=== PATIENT | male | born 1960 | race Caucasian/White ===

== ENCOUNTER 2023-07-17 13:48 | Inpatient (IN) ==
[2023-07-17] MEDS: SODIUM CHLORIDE 0.9% 1,000 ML IV ONE (14:37)
[2023-07-17] MEDS: LORazepam 1 MG/1 ML SYR ED Inj Use IV STA (14:38)
[2023-07-17 15:01] LABS: BUN Creatinine Ratio 10.1 (10-20); Calcium 8.4 mg/dl (8.6-10.3); Creatinine Clr Calc Pharmacy 23.9 ml/min; Est GFR (African American) 21.2 ml/min; Est GFR (Non-African American) 18.3 ml/min; Magnesium 1.1 mg/dl (1.7-2.4); Potassium 2.8 mmol/L (3.5-5.1)
[2023-07-17] MEDS: MAGNESIUM SULFATE / D5W 1 GM/100 ML BAG IV SCH (15:38)
--- NOTE | 2023-07-17 15:39 | CT Scan Report ---
CT OF THE HEAD WITHOUT CONTRAST CLINICAL HISTORY: Seizure. COMPARISON STUDY: No previous studies for comparison. CT DOSE: 547.75 mGy.cm TECHNIQUE: Helical axial images of the head were obtained without IV contrast. Automated exposure con trol was utilized for the study. A dose lowering technique was utilized adhering to the principles o f ALARA. FINDINGS: No acute intracranial hemorrhage, midline shift or mass effect is present. The ventricular system is unremarkable. The basal cisterns are patent. No extra-axial collections are present. There are no findings to suggest acute dural sinus thrombosis or acute territorial infarct. There is no dieter varial fracture. 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 IMPRESSION: No acute intracranial findings. ACT 112: Negative or not required by law. Electronically signed by: Juni Barron M.D. 07/17/2023 3:38 PM
[2023-07-17] MEDS: levETIRAcetam 500 MG/5 ML VIAL IV STA (16:22)
--- NOTE | 2023-07-17 16:27 | History & Physical Report ---
Date of Service July 17, 2023 Assessment & Plan (1) Seizure: Plan: This is a 63 y/o male with history of seizure d/o (on Keppra, last seizure 6 yrs ago), COPD, HTN, dyslipidemia, GERD, alcohol use disorder, and other history as outlined below who presented to the ED today with seizures. Pt notes two days of vomiting and diarrhea with inability to maintain oral intake or keep medications down, including his Keppra. He also drinks EtOH daily and has not been able to keep this down, has a history of withdrawal symptoms previously. Etiology of seizure likely combination of missed medications and alcohol withdrawal. Multiple electrolyt abnormalities noted on labs. - Admit to PCU - Seizure precautions - Consult neurology - ED spoke with Dr. Lacy - Continue Keppra 500 mg IV BID until pt consistently tolerating po then will transition back to oral meds - Gabapentin alcohol withdrawal protocol, prn lorazepam (2) Hypomagnesemia: Plan: Suspect due to vomiting and diarrhea x 2 days Repletion ordered - will recheck tonight at 9 pm and tomorrow AM (3) Hypokalemia: Plan: Suspect due to vomiting and diarrhea x 2 days Repletion ordered - will recheck tonight at 9 pm and tomorrow AM NsS w/ 20 mEq KCL at 125 ml/hr x 1 liter then reassess (4) FELIX (acute kidney injury): Plan: Likely related to dehydration in view of vomiting and profuse diarrhea with inability to maintain oral intake x 2 days - still making urine though decreased from baseline IVF hydration ordered CT abd/pel pending Check urine electrolytes, repeat BMP in the AM - if not improving, consider nephrology consult (5) Gastroenteritis: Plan: Suspect infectious, potentially bacterial - start empiric ceftriaxone and metronidazole Check stool PCR CT Abd/Pel to rule out colitis or other pathology Clear liquid diet for now (6) Leukocytosis: Plan: Concern for infectious gastroenteritis, may be partially reactive due to multiple seizures and vomiting Empiric antibiotics Repeat CBC in the AM (7) Essential hypertension: Plan: Chronic, stable Continue beta matias but hold losartan due to dehydration and FELIX Monitor BP closely (8) COPD (chronic obstructive pulmonary disease): Plan: Chronic, stable Home regimen ordered (9) Dyslipidemia: Plan: Chronic, stable Holding statin until able to tolerate po (10) GERD (gastroesophageal reflux disease): Plan: Chronic Change PPI to IV until consistently tolerating po No evidence of active GI blood loss at present (11) Hyperglycemia: Plan: Prior history of elevated sugar, on Metformin but more recent A1c levels have been around 5 not currently on any medication Check A1c Accuchecks ACHS - consider adding insulin sliding scale if persistently elevated Plan Pt seen and reviewed with collaborating physician, Dr. Mcgill. Plan of care discussed and as outlined above. Code Status: Full code DVT Prophylaxis: Lovenox Dispo: PCEmi Diallo PA-C History of Present Illness Chief Complaint: Seizure Primary Care Provider: JACE PCP This is a 63 y/o male with history of seizure d/o (on Keppra, last seizure 6 yrs ago), COPD, HTN, dyslipidemia, GERD, alcohol use disorder, and other history as outlined below who presented to the ED today with seizures. Pt reports being diagnosed with seizures six years ago when he had a tonic clonic seizure and was started on Keppra. He was unsure of the cause, but notes that he has done well on Keppra since that time without seizure. Today, he developed three "mini" seizures which he and his describe as brief episodes of rapid eye movements, yelling out, paranoia, and mild tremors. These all lasted less than two minutes and occurred in relatively rapid succession. About an hour later, he had a full tonic clonic seizure with associated fecal incontinence. This lasted less than five minutes but was followed by a brief post-ictal period (?<10 minutes). He did bite his tongue during this episode. Pt reports that he has been vomiting for the last two days and has been unable to keep doing any of his medications, including his Keppra. He has had associated subjective fevers, chills, and profuse diarrhea. Denies hematemesis or hematochezia. He denies sick contacts. He does note eating at [employer] just before these symptoms started and that his Whopper didn't taste right. He also reports drinking alcohol daily although is somewhat reticent to quantify the exact amount - does note that he previously drank "heavily" and has since cut back. He tried drinking a beer this morning to see if this would help his symptoms but did not keep it down. He reports a history of alcohol withdrawal symptoms previously, specifically anxiety and tremors. He denies being diabetic at present although reports that he was on Metformin for blood sugar issues when he was drinking heavily. More recent A1c levels have been around 5 so he has not been taking anything for his blood sugar. He denies prior history of kidney disease. Notes that his urine output and frequency have been reduced over the last 24-48 hours but he is still urinating. Denies dark urine or hematuria. Allergies Allergy/AdvReac Type Severity Reaction Status Date / Time pollen extracts Allergy Intermediate ITCHY Verified 07/17/23 16:11 EYES, SNEEZING, CONGESTION Home Medications Medication Instructions Recorded Confirmed Type albuterol sulfate 90 mcg/actuation 1 puff inhalation DIRECTED PRN 07/17/23 07/17/23 History aerosol inhaler (Ventolin HFA) Shortness Of Breath Or Wheezing aspirin 81 mg tablet,delayed 81 mg PO DAILY 07/17/23 07/17/23 History release atorvastatin 40 mg tablet 40 mg PO DAILY 07/17/23 07/17/23 History calcium carbonate 600 mg-vitamin 1 tab PO DAILY 07/17/23 07/17/23 History D3 5 mcg (200 unit) tablet (Calcium 600 + D(3)) celecoxib 200 mg capsule 200 mg PO DAILY PRN Pain 07/17/23 07/17/23 History fluticasone 100 mcg-salmeterol 50 1 inh inhalation BID 07/17/23 07/17/23 History mcg/dose blistr powdr for inhalation levetiracetam 500 mg tablet 500 mg PO BID 07/17/23 07/17/23 History losartan 100 mg tablet 100 mg PO DAILY 07/17/23 07/17/23 History magnesium oxide 500 mg PO DAILY 07/17/23 07/17/23 History metoprolol tartrate 50 mg tablet 50 mg PO DAILY 07/17/23 07/17/23 History multivitamin 1 tab PO DAILY 07/17/23 07/17/23 History omeprazole 40 mg capsule,delayed 40 mg PO DAILY 07/17/23 07/17/23 History release venlafaxine 37.5 mg 37.5 mg PO DAILY 07/17/23 07/17/23 History capsule,extended release 24 hr Past Med/Surg History Problem List (Updated 07/17/23 @ 18:26 by Maria Isabel Diallo PA-C) FELIX (acute kidney injury) Hyperglycemia Gastroenteritis Leukocytosis Dyslipidemia COPD (chronic obstructive pulmonary disease) Hypokalemia (Acute) Hypomagnesemia (Acute) GERD (gastroesophageal reflux disease) Seizure (Acute) Medical History (Updated 07/17/23 @ 18:26 by Maria Isabel Diallo PA-C) Dyslipidemia COPD (chronic obstructive pulmonary disease) Essential hypertension GERD (gastroesophageal reflux disease) Seizure Surgical History (Updated 07/17/23 @ 17:20 by Maria Isabel Diallo PA-C) 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 Family History (Updated 07/17/23 @ 17:21 by Maria Isabel Diallo PA-C) Other Family history non-contributory Social History (Updated 07/17/23 @ 17:20 by Maria Isabel Diallo PA-C) Tobacco Type: Smokeless Tobacco (Dip or Chew) Hx Alcohol Use: Yes Alcohol type: beer Alcohol Intake Frequency: 4 or More x per/Week Alcohol Intake Frequency Comment: daily Hx Substance Use: No Preferred Language: Ukrainian Current Living Situation: Spouse current occupational status: employed Feels Safe at Home: Yes Review of Systems Review of Systems: All systems reviewed & are unremarkable except as noted in HPI & below Constitutional: + fever, + chills, + fatigue, + weakness and + anorexia Eyes: no diplopia Ear, Nose, Mouth, Throat: + problem reported (pain in mouth second kyle to tongue bite wound); no nasal congestion and no sore throat Respiratory: no cough and no dyspnea Cardiovascular: + lightheadedness; no chest pain and no edema Gastrointestinal: as per Subjective / HPI Genitourinary: + as per Subjective / HPI Musculoskeletal: + back pain Integumentary: no rash and no yellowing of the skin Neurologic: + unsteadiness, + generalized weakness, + seizure-like activity and + dizziness Physical Exam Physical Exam: General: awake, alert, NAD Eyes: PERRLA, EOMI, no scleral icterus Mouth: +small shallow wound on right lateral aspect of tongue, no active bleeding; tongue midline; uvula rises symmetrically with phonation; dry oral mucosa Neck: trachea midline Heart: tachycardic, irregular, no murmur Lungs: CTA bilaterally without W/R/R Abdomen: soft but mildly distended with diffuse tenderness to palpation, no guarding or rigidity, +hyperactive BS Extremities: no pedal edema, strength equal bilaterally but decreased symmetrically in LE (subjectively felt weak) Skin: warm, dry, no jaundice or rash Neurologic: Ox3, no dysarthria, no confusion, moving all extremities but generalized weakness as noted. No tremor at present Results & Data Results & Data Vital Signs (Past 12 Hours) Vital Signs Temp Pulse Pulse Resp BP BP Pulse Ox 07/17/23 16:17 128 H 21 132/92 94 07/17/23 15:03 139 H 22 127/82 94 07/17/23 14:34 147 H 07/17/23 14:07 07/17/23 13:51 37.4 C 146 H 18 152/81 H 95 O2 Del Method 07/17/23 16:17 Room Air 07/17/23 15:03 Room Air 07/17/23 14:34 07/17/23 14:07 Room Air 07/17/23 13:51 Room Air Diagnostic Findings Head CT 07/17/23 14:20 CT OF THE HEAD WITHOUT CONTRAST CLINICAL HISTORY: Seizure. COMPARISON STUDY: No previous studies for comparison. CT DOSE: 547.75 mGy.cm TECHNIQUE: Helical axial images of the head were obtained without IV contrast. Automated exposure control was utilized for the study. A dose lowering technique was utilized adhering to the principles of ALARA. FINDINGS: No acute intracranial hemorrhage, midline shift or mass effect is present. The ventricular system is unremarkable. The basal cisterns are patent. No extra-axial collections are present. There are no findings to suggest acute dural sinus thrombosis or acute territorial infarct. There is no calvarial fracture. 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 IMPRESSION: No acute intracranial findings. ACT 112: Negative or not required by law. Electronically signed by: Juni Barron M.D. 07/17/2023 3:38 PM Medications Administered Magnesium Sulfate/Dextrose (Magnesium Sulfate / D5w) 1 gm in 100 mls @ 100 mls/hr IV Q1H ADALGISA Stop: 07/17/23 17:24 Last Admin: 07/17/23 15:38 Dose: 100 mls/hr Documented By: LOTUS Discontinued Medications Sodium Chloride (Nss) 1,000 mls @ 999 mls/hr IV .Q1H1M ONE Stop: 07/17/23 15:20 Last Infusion: 07/17/23 15:38 Dose: Infused Documented By: Admin: 07/17/23 14:37 Dose: 999 mls/hr Documented By: WILLAM Levetiracetam (Levetiracetam 500 Mg/5 Ml Vial) 500 mg IV NOW STA Stop: 07/17/23 15:52 Last Admin: 07/17/23 16:22 Dose: 500 mg Documented By: WILLAM Lorazepam (Lorazepam 1 Mg/1 Ml Syr Ed Inj Use) 1 mg IV ONE STA Stop: 07/17/23 14:27 Last Admin: 07/17/23 14:38 Dose: 1 mg Documented By: WILLAM Code Status & VTE Plan VTE Prophylaxis Plan VTE Prophylaxis will be ordered: Yes Supervising Physician Co-Signing Physician Notes I have seen and discussed the case with the collaborating advanced practitioner. I agree with the above H&P. I have reviewed and confirmed the patients medical history, the findings on physical examination, and the patients diagnosis and treatment plan with Yoel KIM and agree with the information documented. In short, Mr. Gonzalez is a 63 year old gentleman with history of COPD, GERD, HTN, alcohol use, and prior seizure history who is admitted due to seizure. Patient reports eating a fast food burger that "didn't taste right." He has experienced gastrointestinal symptoms marked by cramping, diarrhea, and vomiting. He reports being unable to keep any of his medications down, including his keppra, given this gi illness. He declines alcohol misuse, but also will not quantify the amount he drinks, stating "its really not that much." Patient able to tolerate PO potassium, but notes nausea. CT 1. No bowel obstruction or bowel wall thickening. 2. Nonspecific distal esophageal wall thickening may represent esophagitis. 3. Colonic diverticulosis. 4. Hepatic steatosis. GENERAL APPEARANCE: AxOx4, slightly disheveled,no acute distress. HEENT: NC, AT. MMM. EOMI, clear conjunctiva, oropharynx clear, tongue with nonbleeding laceration on right lateral edge from bite . NECK: Supple without lymphadenopathy. No stiffness or restricted ROM. HEART: tachycardic, ?pacs LUNGS: CTAB, moving air well. No crackles or wheezes are heard. ABDOMEN: Soft, mild discomfort to palpation, high frequency bowel sounds BACK: No CVAT, no obvious deformity. EXTREMITIES: Without cyanosis, clubbing or edema. NEUROLOGICAL: Grossly nonfocal. Alert and oriented, moving all 4 extremities. CN not formally tested but appear grossly intact. no tremulousness noted on exam Skin: Warm and dry without any rash. #Leukocytosis multifactorial: severe gi illness, reactive post seizure CTX/flagyl Stool pcr CT ab/p trend #Seizure #Alcohol use -Neuro on consult, s/p IV keppra Continue IV Keppra until PO intake sufficient AWSS, gabapentin Seizure precautions neuro consult #EFLIX likely iso severe dehydration/GI illness IVF CT abp without not of hydro/cortical changes/etc avoid nephrotoxic agents if up trending low threhold Nephrology UA studies pending #Severe gastrointestinal illness #Anion gap metabolic acidosis #Multiple electrolyte abnormalities marked by profuse diarrhea, vomiting -Hypokalemia, hypomagnesemia -CT abd/p with esophagitis IV PPI qd rest of plan as above I spent a total of 35 minutes coordinating, documenting, and providing care for this patient excluding time spent in the performance of separately billed services. All of the aforementioned completed outside of collaborating with the assigned advanced practitioner for a full treatment plan. I have reviewed the advanced practitioner's documentation, and I agree with, and take responsibility for the plan of care (6) Leukocytosis Leukocytosis type: unspecified Qualified Code(s): D72.829 - Elevated white blood cell count, unspecified (8) COPD (chronic obstructive pulmonary disease) COPD type: unspecified COPD Qualified Code(s): J44.9 - Chronic obstructive pulmonary disease, unspecified (10) GERD (gastroesophageal reflux disease) Esophagitis presence: esophagitis presence not specified Qualified Code(s): K21.9 - Gastro-esophageal reflux disease without esophagitis
[2023-07-17] MEDS: POTASSIUM CHLORIDE CRTAB 20 MEQ TABCR PO STA (16:28)
[2023-07-17 16:38] LABS: Mean Corpuscular Hemoglobin 34.8 pg (25.0-34.0); Mean Corpuscular Hgb Conc 37.2 g/dL (32.0-36.0); Mean Corpuscular Volume 93.5 fL (80.0-100.0); Mean Platelet Volume 9.9 fL (9.4-12.4); Platelet Count 360 K/uL (130-400); RDW Coefficient of Variation 12.3 % (11.5-14.5); RDW Standard Deviation 41.5 fL (36.4-46.3)
[2023-07-17 16:46] LABS: INR 1.3 (0.9-1.1); Prothrombin Time 13.7 Seconds (9.0-12.0)
--- NOTE | 2023-07-17 17:01 | Emergency Department Note ---
History of Present Illness General Chief complaint: Seizure Stated complaint: NOT EATING, VOMITNG, SHAKING Time Seen by Provider: 07/17/23 14:20 History of Present Illness Provider complaint: Seizure 63-year-old male presents emergency department for seizure. Patient states he had 3 "mini seizures" where he did not lose conscious but folic he was can have a seizure. states he then had 1 seizure lasting approximately 1 minute. Patient did have an episode of urinary continence. Patient states he usually drinks alcohol 3 times daily but has not drank any alcohol today. Patient is post be on Keppra 500 mg twice daily but did not take his Keppra this morning. No falls or traumas. Patient is originally from [place]. Home Medications Medication Instructions Recorded Confirmed Type albuterol sulfate 90 mcg/actuation 1 puff inhalation DIRECTED PRN 07/17/23 07/17/23 History aerosol inhaler (Ventolin HFA) Shortness Of Breath Or Wheezing aspirin 81 mg tablet,delayed 81 mg PO DAILY 07/17/23 07/17/23 History release atorvastatin 40 mg tablet 40 mg PO DAILY 07/17/23 07/17/23 History calcium carbonate 600 mg-vitamin 1 tab PO DAILY 07/17/23 07/17/23 History D3 5 mcg (200 unit) tablet (Calcium 600 + D(3)) celecoxib 200 mg capsule 200 mg PO DAILY PRN Pain 07/17/23 07/17/23 History fluticasone 100 mcg-salmeterol 50 1 inh inhalation BID 07/17/23 07/17/23 History mcg/dose blistr powdr for inhalation levetiracetam 500 mg tablet 500 mg PO BID 07/17/23 07/17/23 History losartan 100 mg tablet 100 mg PO DAILY 07/17/23 07/17/23 History magnesium oxide 500 mg PO DAILY 07/17/23 07/17/23 History metoprolol tartrate 50 mg tablet 50 mg PO DAILY 07/17/23 07/17/23 History multivitamin 1 tab PO DAILY 07/17/23 07/17/23 History omeprazole 40 mg capsule,delayed 40 mg PO DAILY 07/17/23 07/17/23 History release venlafaxine 37.5 mg 37.5 mg PO DAILY 07/17/23 07/17/23 History capsule,extended release 24 hr Allergies Allergy/AdvReac Type Severity Reaction Status Date / Time pollen extracts Allergy Intermediate ITCHY Verified 07/17/23 16:11 EYES, SNEEZING, CONGESTION Past Med/Surg History Problem List (Updated 07/17/23 @ 17:06 by Evangelist Henriquez MD) Hypokalemia (Acute) Hypomagnesemia (Acute) HLD (hyperlipidemia) GERD (gastroesophageal reflux disease) Seizure (Acute) Medical History No pertinent family history HLD (hyperlipidemia) GERD (gastroesophageal reflux disease) Seizure Surgical History No pertinent past surgical history Social History Tobacco Type: Smokeless Tobacco (Dip or Chew) Preferred Language: [place]ese Feels Safe at Home: Yes Physical Exam Vital Signs Vital Signs - 24 hr 07/17/23 13:51 07/17/23 14:07 07/17/23 14:34 Temperature 37.4 C Temperature Source Temporal Artery Scan Pulse Rate 146 H 147 H Pulse Rate [Right Finger] Respiratory Rate 18 Respiratory Effort / Characteristics Non-Labored Spontaneous Respiratory Depth Normal Respiratory Pattern Regular Blood Pressure 152/81 H Blood Pressure [Right Arm] Blood Pressure Mean 104 Blood Pressure Mean [Right Arm] Blood Pressure Position Sitting Pulse Oximetry 95 Oxygen Delivery Method Room Air Room Air Sepsis Recent Fever Within 48 Hours No Sepsis New/Unexplained Change in Mental Status N/A Sepsis Action Taken by Nursing No Action Required 07/17/23 15:03 07/17/23 16:17 Temperature Temperature Source Pulse Rate Pulse Rate [Right Finger] 139 H 128 H Respiratory Rate 22 21 Respiratory Effort / Characteristics Non-Labored Non-Labored Spontaneous Respiratory Depth Normal Normal Respiratory Pattern Regular Blood Pressure Blood Pressure [Right Arm] 127/82 132/92 Blood Pressure Mean Blood Pressure Mean [Right Arm] 97 105 Blood Pressure Position Pulse Oximetry 94 94 Oxygen Delivery Method Room Air Room Air Sepsis Recent Fever Within 48 Hours Sepsis New/Unexplained Change in Mental Status Sepsis Action Taken by Nursing Physical Exam GENERAL: Patient in what appears to be urine soaked pants. HENT: Exam performed. - Head: Normocephalic and atraumatic. - Right Ear: External ear normal. No mastoid erythema - Left Ear: External ear normal. No mastoid erythema - Mouth/Throat: The oropharynx is clear and moist. No trismus in the jaw. No dental abscesses or uvula swelling. No oropharyngeal exudate or tonsillar abscesses. There is evidence of a right-sided tongue bite/abrasion. EYES: Conjunctivae and EOM are normal. Pupils are equal, round, and reactive to light. Right eye exhibits no discharge. Left eye exhibits no discharge. No scleral icterus. NECK: Normal range of motion. Neck supple. No JVD present. No spinous process tenderness present. No rigidity. No tracheal deviation and normal range of motion present. CV: Tachycardic rate, regular rhythm, normal heart sounds and intact distal pulses. There is no peripheral edema. Palpable radial pulses bue. PULM/CHEST: Effort normal and breath sounds normal. No respiratory distress. No stridor. He has no wheezes. He has no rales. ABD: The abdomen is soft. There is no tenderness. There is no rebound, no guarding, no Perales's sign. NEURO: Patient appears tremulous. He is alert and oriented to person, place, and time. He has normal strength. No cranial nerve deficit or sensory deficit. Coordination and gait normal. GCS eye subscore is 4. GCS verbal subscore is 5. GCS motor subscore is 6. Cerebellar tests wnl. Course Course 1420: The patient was evaluated in room . A complete history and physical exam was performed Cardiac monitoring: An order was placed for continuous cardiac monitoring. The monitor shows a rate of 140 with sinus rhythm interpreted by al 1601: Patient's tachycardia has improved with Ativan and IV hydration. Blood pressure stable. Tremor has improved. CT of the head within normal limits. Labs show a potassium of 2.8. Creatinine 3.38. Magnesium 1.1. Patient states he is not aware of any kidney disease. Magnesium repletion started in the emergency department and then will be followed by potassium repletion. Patient states he did not take his morning Keppra dose. 500 mg of IV Keppra ordered for the patient. Discussed the case with on-call neurology Dr. Lacy and he agrees that we can continue with the patient's 500 mg of Keppra twice daily, no need for any further Keppra loading or increased dosage. Patient will be admitted to the [facility] team. 1704: White blood cell count 31.8. Thought to be reactive secondary to seizures. Prolactin level is elevated again corresponding with most likely seizure. Administered Medications Magnesium Sulfate/Dextrose (Magnesium Sulfate / D5w) 1 gm in 100 mls @ 100 mls/hr IV Q1H ADALGISA Stop: 07/17/23 17:24 Last Admin: 07/17/23 16:54 Dose: 100 mls/hr Documented By: Infusion: 07/17/23 16:38 Dose: Infused Documented By: Admin: 07/17/23 15:38 Dose: 100 mls/hr Documented By: TONYT Discontinued Medications Sodium Chloride (Nss) 1,000 mls @ 999 mls/hr IV .Q1H1M ONE Stop: 07/17/23 15:20 Last Infusion: 07/17/23 15:38 Dose: Infused Documented By: Admin: 07/17/23 14:37 Dose: 999 mls/hr Documented By: WILLAM Levetiracetam (Levetiracetam 500 Mg/5 Ml Vial) 500 mg IV NOW STA Stop: 07/17/23 15:52 Last Admin: 07/17/23 16:22 Dose: 500 mg Documented By: WILLAM Lorazepam (Lorazepam 1 Mg/1 Ml Syr Ed Inj Use) 1 mg IV ONE STA Stop: 07/17/23 14:27 Last Admin: 07/17/23 14:38 Dose: 1 mg Documented By: WILLAM Potassium Chloride (Potassium Chloride Crtab 20 Meq Tabcr) 40 meq PO NOW STA Stop: 07/17/23 16:25 Last Admin: 07/17/23 16:28 Dose: 40 meq Documented By: WILLAM Medical Decision Making Laboratory Data Attestation: I reviewed the patient's lab results. 07/17/23 14:10 07/17/23 14:10 Lab Results 07/17/23 Range/Units 14:10 WBC 31.80 H* (4.8-10.8) K/ul RBC 4.60 L (4.70-6.10) M/uL Hgb 16.0 (14.0-18.0) g/dl Hct 43.0 (42.0-52.0) % MCV 93.5 (80.0-100.0) fL MCH 34.8 H (25.0-34.0) pg MCHC 37.2 H (32.0-36.0) g/dL RDW Std Deviation 41.5 (36.4-46.3) fL RDW Coeff of Tanner 12.3 (11.5-14.5) % Plt Count 360 (130-400) K/uL MPV 9.9 (9.4-12.4) fL PT 13.7 H (9.0-12.0) Seconds INR 1.3 H (0.9-1.1) Sodium 135 L (136-145) mmol/L Potassium 2.8 L (3.5-5.1) mmol/L Chloride 93 L (98-107) mmol/L Carbon Dioxide 13 L (21-32) mmol/L Anion Gap 29 H (3-11) BUN 34 H (6-23) mg/dl Creatinine 3.38 H (0.6-1.4) mg/dl Est Cr Clr Drug Dosing 23.9 ml/min Est GFR ( Amer) 21.2 ml/min Est GFR (Non-Af Amer) 18.3 ml/min BUN/Creatinine Ratio 10.1 (10-20) Glucose 343 H* (70-99(Fasting)) mg/dl Calcium 8.4 L (8.6-10.3) mg/dl Magnesium 1.1 L (1.7-2.4) mg/dl Prolactin 18.99 ng/ml Imaging Data Radiologist's Impression: Head CT 07/17/23 14:20 CT OF THE HEAD WITHOUT CONTRAST CLINICAL HISTORY: Seizure. COMPARISON STUDY: No previous studies for comparison. CT DOSE: 547.75 mGy.cm TECHNIQUE: Helical axial images of the head were obtained without IV contrast. Automated exposure control was utilized for the study. A dose lowering technique was utilized adhering to the principles of ALARA. FINDINGS: No acute intracranial hemorrhage, midline shift or mass effect is present. The ventricular system is unremarkable. The basal cisterns are patent. No extra-axial collections are present. There are no findings to suggest acute dural sinus thrombosis or acute territorial infarct. There is no calvarial fracture. 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 IMPRESSION: No acute intracranial findings. ACT 112: Negative or not required by law. Electronically signed by: Juni Barron M.D. 07/17/2023 3:38 PM ECG Data Attestation: I personally reviewed and interpreted this ECG as follows: Rate (beats per minute): 151 Rhythm: + sinus tachycardia ECG Intervals/blocks: + Normal QRS, + Normal UT and + Normal QT-c ECG ST segments: + Normal ST segments MDM Narrative 1420: The patient was evaluated in room . A complete history and physical exam was performed Cardiac monitoring: An order was placed for continuous cardiac monitoring. The monitor shows a rate of 140 with sinus rhythm interpreted by me 1601: Patient's tachycardia has improved with Ativan and IV hydration. Blood pressure stable. Tremor has improved. CT of the head within normal limits. Labs show a potassium of 2.8. Creatinine 3.38. Magnesium 1.1. Patient states he is not aware of any kidney disease. Magnesium repletion started in the emergency department and then will be followed by potassium repletion. Patient states he did not take his morning Keppra dose. 500 mg of IV Keppra ordered for the patient. Discussed the case with on-call neurology Dr. Lacy and he agrees that we can continue with the patient's 500 mg of Keppra twice daily, no need for any further Keppra loading or increased dosage. Patient will be admitted to the [facility] team. 1704: White blood cell count 31.8. Thought to be reactive secondary to seizures. Prolactin level is elevated again corresponding with most likely seizure. Impression & Plan Seizure, Hypomagnesemia, Hypokalemia Discharge Plan Visit Data Chief Complaint: Seizure Stated Complaint: NOT EATING, VOMITNG, SHAKING ED Provider: Evangelist Henriquez Discharge Problem: Seizure, Hypomagnesemia, Hypokalemia Patient Disposition: Admitted As Inpatient Forms Stand Alone Forms: [facility] Prescriptions Prescriptions: No Action multivitamin Tablet 1 tab PO DAILY celecoxib 200 mg capsule 200 mg PO DAILY PRN (Reason: Pain) atorvastatin 40 mg tablet 40 mg PO DAILY venlafaxine 37.5 mg capsule,extended release 24hr 37.5 mg PO DAILY levetiracetam 500 mg tablet 500 mg PO BID calcium carbonate-vitamin D3 [Calcium 600 + D(3)] 600 mg-5 mcg (200 unit) Tablet 1 tab PO DAILY omeprazole 40 mg capsule,delayed release(DR/EC) 40 mg PO DAILY aspirin 81 mg Tablet,Delayed Release (Dr/Ec) 81 mg PO DAILY metoprolol tartrate 50 mg tablet 50 mg PO DAILY magnesium oxide 500 mg magnesium tablet 500 mg PO DAILY fluticasone propion-salmeterol 100-50 mcg/dose blister with device 1 inh INHALATION BID albuterol sulfate [Ventolin HFA] 90 mcg/actuation Hfa Aerosol Inhaler 1 puff INHALATION DIRECTED PRN (Reason: Shortness Of Breath Or Wheezing) losartan 100 mg tablet 100 mg PO DAILY Referrals Referrals: PCP,NO [Primary Care Provider] -
[2023-07-17] MEDS ORDERED: LIDOCAINE VISCOUS 2% 15 ML UDC MT PRN (17:12)
[2023-07-17 17:13] LABS: Albumin Level 5.1 gm/dl (3.4-5.0); Bilirubin Direct 0.3 mg/dl (0-0.2); Bilirubin,Total 0.8 mg/dl (0.2-1.0)
--- NOTE | 2023-07-17 17:13 | Electrocardiogram Report ---
Test Reason : Blood Pressure : / mmHG Vent. Rate : 151 BPM Atrial Rate : 170 BPM P-R Int : 184 ms QRS Dur : 082 ms QT Int : 296 ms P-R-T Axes : 000 -08 222 degrees QTc Int : 469 ms Sinus tachycardia Minimal voltage criteria for LVH, may be normal variant Nonspecific ST and T wave abnormality Abnormal ECG No previous ECGs available Confirmed by Kashif Velázquez ([id number]) on 07/17/2023 5:13:05 PM Referred By: REFERRED SELF Confirmed By:Carlito Velázquez
[2023-07-17 17:16] LABS: Phosphorus 5.6 mg/dl (2.5-4.9); Total Protein 8.5 gm/dl (6.0-8.3)
[2023-07-17 17:25] LABS: Folate (Folic Acid),Ser orPlas > 22.30 ng/ml (>5.38)
[2023-07-17 17:26] LABS: Vitamin B12 318 pg/ml (180-914)
[2023-07-17] MEDS: cefTRIAXone SODIUM 2,000 MG/50 ML BAG IV SCH (17:36)
[2023-07-17] MEDS: PANTOprazole 40 MG in SYRINGE 0 ML IV SCH (18:09)
[2023-07-17] MEDS: metroNIDAZOLE 500 MG/100 ML BAG IV SCH (18:14)
--- NOTE | 2023-07-17 18:37 | CT Scan Report ---
ABDOMEN AND PELVIS CT WITHOUT CONTRAST CT DOSE: 1390.78 mGy.cm HISTORY: Acute generalized abdominal pain leukocytosis, abdominal pain TECHNIQUE: Multiaxial CT images of the abdomen and pelvis were performed without contrast. A dose lo wering technique was utilized adhering to the principles of ALARA. COMPARISON STUDY: None. FINDINGS: Coronary artery calcifications. Mild cardiomegaly. Mild subsegmental bibasilar atelectasis versus scarring. No free air. Unremarkable unenhanced spleen, pancreas and adrenal glands. Possible g allbladder sludge. Hepatic steatosis with mild hepatomegaly. Mild nonspecific bilateral perinephric stranding. No urolithiasis or hydronephrosis. Prostatomegaly w ith mild bladder wall thickening. There is mild dilation of the mid to distal left ureter. Small fat filled left inguinal hernia. No abdominal aortic aneurysm. No lymphadenopathy. Nonspecific distal eso phageal wall thickening. Tiny hiatal hernia. No bowel obstruction or bowel wall thickening. Colonic d iverticulosis. Normal appendix. Unremarkable soft tissues. Healed chronic left-sided rib fractures. N o acute fracture. IMPRESSION: 1. No bowel obstruction or bowel wall thickening. 2. Nonspecific distal esophageal wall thickening may represent esophagitis. 3. Colonic diverticulosis. 4. Hepatic steatosis. ACT 112: Negative or not required by law. The above report was generated using voice recognition software. It may contain grammatical, syntax o r spelling errors. Electronically signed by: Tushar Flor M.D. 07/17/2023 6:35 PM
[2023-07-17] MEDS: NSS + 20MEQ KCL 20 MEQ/1,000 ML BAG IV SCH (19:05)
[2023-07-17] MEDS ORDERED: Ativan IV Alcohol Withdrawal--Active Protocol IV PRN (19:40)
[2023-07-17] MEDS ORDERED: DICYCLOMINE HCL 10 MG CAP PO PRN (19:40)
[2023-07-17] MEDS ORDERED: LORazepam 2 MG in SYRINGE 1 ML IV PRN (19:40)
[2023-07-17] MEDS ORDERED: ALBUTEROL HFA 8 GM INHALER INH PRN (19:40)
[2023-07-17] MEDS ORDERED: GABAPENTIN 600MG ALCOHOL WITHDRAWAL LOAD PO STA (19:40)
[2023-07-17] MEDS: GABAPENTIN 600 MG TAB PO ONE (20:54)
[2023-07-17] MEDS: FOLIC ACID 1 MG in SYRINGE 9.8 ML IV SCH (20:55)
[2023-07-17] MEDS: THIAMINE HCL 100 MG in SYRINGE 9 ML IV SCH (20:55)
[2023-07-17] MEDS: POTASSIUM CHLORIDE CRTAB 20 MEQ TABCR PO SCH (20:55)
[2023-07-17 22:04] LABS: BUN Creatinine Ratio 11.8 (10-20); Calcium 7.3 mg/dl (8.6-10.3); Creatinine Clr Calc Pharmacy 28.2 ml/min; Est GFR (African American) 25.8 ml/min; Est GFR (Non-African American) 22.3 ml/min; Potassium 2.9 mmol/L (3.5-5.1)
[2023-07-18] MEDS: GABAPENTIN 100 MG CAP PO SCH (00:30)
[2023-07-18] MEDS: levETIRAcetam IV 500 MG in SODIUM CHLOR 0.9% MINI-B 100 ML IV SCH (03:35)
[2023-07-18 04:01] LABS: Appearance Urine Clear (Clear); Bacteria Urine Automated None Seen (None Seen); Bilirubin Urine Negative (Negative); Blood Urine 2+ (Negative); Cast Urine Automated 0-2 /lpf (0-2); Color Urine Yellow; Epithelial Cell Urine Auto 0-2 /hpf (0-2); Glucose Urine UA Negative (Negative); Ketones Urine Negative (Negative); Leukocyte Esterase Urine Negative (Negative); Nitrite Urine Negative (Negative); Protein Urine 2+ (Negative); RBC Urine Automated 0-2 /hpf (0-2); Specific Gravity Urine 1.007 (1.000-1.030); Urobilinogen Urine Negative (Negative); WBC Urine Automated 0-5 /hpf (0-5); pH Urine 5.5 (4.5-7.5)
[2023-07-18 04:18] LABS: Chloride Random Urine < 15 mmol/L; Total Protein Urine Random 57.9 mg/dl (0-11.9); Urine Chloride < 15 mmol/L; Urine Potassium 11.9 mmol/L; Urine Sodium 18 mmol/L
[2023-07-18 04:24] LABS: Creatinine Urine Random 74.1 mg/dl; Protein Creatinine Ratio Urine 0.8 (0-0.2)
[2023-07-18 06:40] LABS: BUN Creatinine Ratio 13.7 (10-20); Calcium 6.9 mg/dl (8.6-10.3); Creatinine Clr Calc Pharmacy 31.5 ml/min; Est GFR (African American) 29.7 ml/min; Est GFR (Non-African American) 25.6 ml/min; Magnesium 1.7 mg/dl (1.7-2.4); Potassium 3.5 mmol/L (3.5-5.1)
[2023-07-18 06:46] LABS: Basophils # (auto) 0.03 K/uL (0.00-0.20); Basophils % (auto) 0.3 %; Eosinophils # (auto) 0.05 K/uL (0.00-0.50); Eosinophils % (auto) 0.5 %; Hematocrit (blood only) 32.9 % (42.0-52.0); Hemoglobin 11.6 g/dl (14.0-18.0); Immature Granulocytes # (auto) 0.06 K/uL (0.01-0.20); Immature Granulocytes % (auto) 0.6 %; Lymphocytes % (auto) 8.6 %; Mean Corpuscular Hemoglobin 33.3 pg (25.0-34.0); Mean Corpuscular Hgb Conc 35.3 g/dL (32.0-36.0); Mean Corpuscular Volume 94.5 fL (80.0-100.0); Mean Platelet Volume 9.6 fL (9.4-12.4); Monocytes # (auto) 0.69 K/uL (0.11-0.59); Monocytes % (auto) 7.4 %; Neutrophils # (auto) 7.65 K/uL (1.40-6.50); Neutrophils % (auto) 82.6 %; Platelet Count 156 K/uL (130-400); Platelet Estimate Normal (Normal); Polychromasia 1+; RDW Coefficient of Variation 12.2 % (11.5-14.5); RDW Standard Deviation 41.8 fL (36.4-46.3); Red Blood Count 3.48 M/uL (4.70-6.10); White Blood Count 9.28 K/ul (4.8-10.8)
[2023-07-18 06:51] LABS: Estimated Average Glucose 128 mg/dl; Hemoglobin A1C 6.1 % (4.5-5.6)
--- NOTE | 2023-07-18 08:33 | Neurology Consultation ---
Date of Consultation July 18, 2023 Assessment & Plan (1) Seizure: History of Present Illness Attending Physician: Manuel Guerrier MD History of Present Illness pt this morning doing well. pt states he had GI problem for 3 months with diarrhea and feeling sick. he had loose stool daily for almost 3 months. pt yesterday feeling not well and had seizure. pt is on keppra and he couldn't take his med. this morning his GI symptoms improving. not confused. no more seizures. admission HPI: This is a 63 y/o male with history of seizure d/o (on Keppra, last seizure 6 yrs ago), COPD, HTN, dyslipidemia, GERD, alcohol use disorder, and other history as outlined below who presented to the ED today with seizures. Pt reports being diagnosed with seizures six years ago when he had a tonic clonic seizure and was started on Keppra. He was unsure of the cause, but notes that he has done well on Keppra since that time without seizure. Today, he developed three "mini" seizures which he and his describe as brief episodes of rapid eye movements, yelling out, paranoia, and mild tremors. These all lasted less than two minutes and occurred in relatively rapid succession. About an hour later, he had a full tonic clonic seizure with associated fecal incontinence. This lasted less than five minutes but was followed by a brief post-ictal period (?<10 minutes). He did bite his tongue during this episode. Pt reports that he has been vomiting for the last two days and has been unable to keep doing any of his medications, including his Keppra. He has had associated subjective fevers, chills, and profuse diarrhea. Denies hematemesis or hematochezia. He denies sick contacts. He does note eating at [employer] just before these symptoms started and that his Whopper didn't taste right. He also reports drinking alcohol daily although is somewhat reticent to quantify the exact amount - does note that he previously drank "heavily" and has since cut back. He tried drinking a beer this morning to see if this would help his symptoms but did not keep it down. He reports a history of alcohol withdrawal symptoms previously, specifically anxiety and tremors. He denies being diabetic at present although reports that he was on Metformin for blood sugar issues when he was drinking heavily. More recent A1c levels have been around 5 so he has not been taking anything for his blood sugar. He denies prior history of kidney disease. Notes that his urine output and frequency have been reduced over the last 24-48 hours but he is still urinating. Denies dark urine or hematuria. Allergies Allergy/AdvReac Type Severity Reaction Status Date / Time pollen extracts Allergy Intermediate ITCHY Verified 07/17/23 16:11 EYES, SNEEZING, CONGESTION Home Medications Medication Instructions Recorded Confirmed Type albuterol sulfate 90 mcg/actuation 1 puff inhalation DIRECTED PRN 07/17/23 07/17/23 History aerosol inhaler (Ventolin HFA) Shortness Of Breath Or Wheezing aspirin 81 mg tablet,delayed 81 mg PO DAILY 07/17/23 07/17/23 History release atorvastatin 40 mg tablet 40 mg PO DAILY 07/17/23 07/17/23 History calcium carbonate 600 mg-vitamin 1 tab PO DAILY 07/17/23 07/17/23 History D3 5 mcg (200 unit) tablet (Calcium 600 + D(3)) celecoxib 200 mg capsule 200 mg PO DAILY PRN Pain 07/17/23 07/17/23 History fluticasone 100 mcg-salmeterol 50 1 inh inhalation BID 07/17/23 07/17/23 History mcg/dose blistr powdr for inhalation levetiracetam 500 mg tablet 500 mg PO BID 07/17/23 07/17/23 History losartan 100 mg tablet 100 mg PO DAILY 07/17/23 07/17/23 History magnesium oxide 500 mg PO DAILY 07/17/23 07/17/23 History metoprolol tartrate 50 mg tablet 50 mg PO DAILY 07/17/23 07/17/23 History multivitamin 1 tab PO DAILY 07/17/23 07/17/23 History omeprazole 40 mg capsule,delayed 40 mg PO DAILY 07/17/23 07/17/23 History release venlafaxine 37.5 mg 37.5 mg PO DAILY 07/17/23 07/17/23 History capsule,extended release 24 hr Patient History Medical History (Updated 07/18/23 @ 08:31 by Tanner Lacy MD) Essential hypertension Surgical History (Updated 07/17/23 @ 17:20 by Maria Isabel Diallo PA-C) 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 Family History (Updated 07/17/23 @ 17:21 by Maria Isabel Diallo PA-C) Other Family history non-contributory Social History (Updated 07/17/23 @ 17:20 by Maria Isabel Diallo PA-C) Smoking Status: Never smoker Tobacco Type: Smokeless Tobacco (Dip or Chew) Second Hand Exposure: No; Do You Dip or Chew Tobacco: Yes; Tobacco Cessation Education Requested by Patient: No Hx Alcohol Use: Yes Alcohol type: beer Alcohol Intake Frequency: 4 or More x per/Week Alcohol Intake Frequency Comment: daily Hx Substance Use: No Preferred Language: Israeli Communication Ability: Effective [employer]argo Specialist Required: No Beliefs That Will Affect Care: None Current Living Situation: Spouse current occupational status: employed Other Information That Helps Us Care for You: No Feels Safe at Home: Yes Safety Concerns: Feels Safe At This Time Assistive Devices: Cane and CPAP Exam (Neuro) Physical Exam: HEENT: normocephalic Neuro: Mental: AOx4, fluent speech, normal comprehension, no apraxia, no L/R confusion, no neglect CN: PERRL, Full EOM, symmetric face, midline T/U/P, 5/5 SCM/traps. Motor: No abnormal movements, normal tone and bulk, 5/5 t/o bilaterally Coord: intact FNT b/l DTR: 2+ sym b/l Impression: 63 yo male with hx of seizure and chronic alcoholic with breakthrough events in setting of dehydration, missed med, and likely GI infection. doing well currently. no sign of withdrawal at this point. Recommendations: can change his keppra to PO once pt is able to hold down his food. continue 500mg bid no need for EEG correct electrolytes. not much else to add from neurology consider checking for thiamine level call again if new question. Chart reviewed I have spent more than 50% educating patient about potential diagnosis and neurological evaluation and coordinating care with patient's treatment team. Total time spent (including chart review and coordination of care): 60 min (this includes chart review). Results & Data Vital Signs (Past 12 Hours) Vital Signs Temp Pulse Resp BP BP Pulse Ox O2 Del Method 07/18/23 07:23 36.8 C 83 19 131/84 95 Room Air 07/18/23 02:54 36.5 C 95 H 19 121/82 98 Room Air 07/17/23 22:51 36.7 C 97 H 20 126/76 95 Room Air PG Care Time/CCT Total # of Minutes Spent Total Time Spent with Patient: Total time spent is greater than 50% in coordination of care (as documented) at patient's floor/unit and/or counseling patient: Coding Level of Care Code 29164 IN/OBS CONSULT LVL 4,60M Diagnoses Seizure R56.9
[2023-07-18] MEDS: ENOXAPARIN INJ 30 MG/0.3 ML SYR SQ SCH (08:54)
[2023-07-18] MEDS: VENLAFAXINE HCL XR 37.5 MG CAPXR PO SCH (08:54)
[2023-07-18] MEDS: METOPROLOL TARTRATE 50 MG TAB PO SCH (08:54)
[2023-07-18] MEDS: SODIUM CHLORIDE 0.9% 1,000 ML IV SCH (08:55)
[2023-07-18] MEDS: FLUTICASONE/VILANTEROL 100/25MCG 14 PUFFS/INHALER INH SCH (10:57)
[2023-07-18 14:03] LABS: Adenovirus F 40/41 PCR Not Detected (NotDetected); Astrovirus PCR Not Detected (NotDetected); Campylobacter PCR Not Detected (NotDetected); Cryptosporidium PCR Not Detected (NotDetected); Cyclospora cayetanensis PCR Not Detected (NotDetected); Entamoeba histolytica PCR Not Detected (NotDetected); Enteroaggregative E.coli(EAEC) Not Detected (NotDetected); Enteropathogenic E.coli (EPEC) Not Detected (NotDetected); Enterotoxigenic E.coli (ETEC) Not Detected (NotDetected); Giardia lamblia PCR Not Detected (NotDetected); Norovirus GI/GII PCR Not Detected (NotDetected); Plesiomonas shigelloides PCR Not Detected (NotDetected); Rotavirus A PCR Not Detected (NotDetected); Salmonella PCR Not Detected (NotDetected); Sapovirus PCR Not Detected (NotDetected); Shiga-like Toxin E.coli (STEC) Not Detected (NotDetected); Shigella/Enteroinvasive E.coli Not Detected (NotDetected); Vibrio cholerae PCR Not Detected (NotDetected); Vibrio species PCR Not Detected (NotDetected); Yersinia enterocolitica PCR Not Detected (NotDetected)
--- NOTE | 2023-07-18 14:15 | Hospitalist Progress Note ---
Date of Service July 18, 2023 Assessment & Plan (1) Seizure: Plan: This is a 63 y/o male with history of seizure d/o (on Keppra, last seizure 6 yrs ago), COPD, HTN, dyslipidemia, GERD, alcohol use disorder, and other history as outlined below who presented to the ED today with seizures. Pt notes two days of vomiting and diarrhea with inability to maintain oral intake or keep medications down, including his Keppra. He also drinks EtOH daily and has not been able to keep this down, has a history of withdrawal symptoms previously. Etiology of seizure likely combination of missed medications and alcohol withdrawal. Multiple electrolyt abnormalities noted on labs. Evaluated by neurology; recommended to continue Keppra IV until oral can be established. Seizure precaution Will replete electrolyte as necessary (2) Gastroenteritis: Plan: Gastroenteritis with nausea and vomiting for several days Stool PCR negative CT abdomen pelvis did not show any significant findings On empiric ceftriaxone and Flagyl. Will continue antibiotics till blood cultures are negative. Full liquid diet; advance as tolerated (3) FELIX (acute kidney injury): Plan: Likely related to dehydration in view of vomiting and profuse diarrhea with inability to maintain oral intake x 2 days His creatinine back in March 2023 was 0.99 Creatinine getting better with IV hydration from 3.8-2.5. Continue IV fluids with normal saline for 2 more liters BMP daily (4) Hypomagnesemia: Plan: Suspect due to vomiting and diarrhea x 2 days Repleted (5) Hypokalemia: Plan: Suspect due to vomiting and diarrhea x 2 days Repleted (6) Leukocytosis: Plan: Likely stress related; resolved repleted Empiric antibiotics (7) Essential hypertension: Plan: Chronic, stable Continue beta matias but hold losartan due to dehydration and FELIX Monitor BP closely (8) COPD (chronic obstructive pulmonary disease): Plan: Chronic, stable Home regimen ordered (9) Dyslipidemia: Plan: Chronic, stable Holding statin until able to tolerate po (10) GERD (gastroesophageal reflux disease): Plan: Chronic Continue PPI (11) Hyperglycemia: Plan: Prior history of elevated sugar, on Metformin but more recent A1c levels have been around 5 not currently on any medication A1c of 6.1% Monitor Plan Code Status: Full code DVT Prophylaxis: Lovenox Dispo: PCU Time spent evaluating patient, direct bedside care, chart review, placing orders, interpretation of diagnostic studies, discussion with consultants, patient, and family members, as well as other required patient management activities is 50 minutes Please note the above document was generated using voice recognition software. It may contain grammatical, syntax or spelling errors. Any formal questions or concerns about the content, text or information contained within the body of this dictation should be directly addressed to the provider for clarification Admission and Anticipated Discharge Date Admission Date: July 17, 2023 Subjective Patient seen and examined at bedside. He reports the nausea and vomiting has improved compared to yesterday Denies any abdominal pain or discomfort. No seizures overnight Review of Systems Review of Systems: All systems reviewed & are unremarkable except as noted in Subjective Physical Exam Physical Exam: General: awake, alert, NAD Eyes: PERRLA, EOMI, no scleral icterus Mouth: +small shallow wound on right lateral aspect of tongue, no active bleeding; Neck: trachea midline Heart: tachycardic,regular, no murmur Lungs: CTA bilaterally without W/R/R Abdomen: soft but mildly distended with diffuse tenderness to palpation, no guarding or rigidity, +hyperactive BS Extremities: no pedal edema, strength equal bilaterally but decreased symmetrically in LE (subjectively felt weak) Skin: warm, dry, no jaundice or rash Neurologic: Ox3, no dysarthria, no confusion, moving all extremities but generalized weakness as noted. No tremor at present Results & Data Results & Data Vital Signs (Past 12 Hours) Vital Signs Temp Pulse Pulse Resp BP BP Pulse Ox 07/18/23 11:20 36.7 C 82 20 125/88 95 07/18/23 08:00 90 07/18/23 07:23 36.8 C 83 19 131/84 95 07/18/23 02:54 36.5 C 95 H 19 121/82 98 O2 Del Method 07/18/23 11:20 Room Air 07/18/23 08:00 07/18/23 07:23 Room Air 07/18/23 02:54 Room Air (6) Leukocytosis Leukocytosis type: unspecified Qualified Code(s): D72.829 - Elevated white blood cell count, unspecified (8) COPD (chronic obstructive pulmonary disease) COPD type: unspecified COPD Qualified Code(s): J44.9 - Chronic obstructive pulmonary disease, unspecified (10) GERD (gastroesophageal reflux disease) Esophagitis presence: esophagitis presence not specified Qualified Code(s): K21.9 - Gastro-esophageal reflux disease without esophagitis
[2023-07-18] MEDS: GABAPENTIN 600 MG TAB PO SCH (15:30)
[2023-07-18] MEDS: LORazepam 1 MG in SYRINGE 0.5 ML IV PRN (18:44)
[2023-07-18] MEDS: PANTOprazole 40 MG in SYRINGE 0 ML IV SCH (22:28)
[2023-07-19 00:45] LABS: Hematocrit (blood only) 29.2 % (42.0-52.0); Hemoglobin 10.4 g/dl (14.0-18.0)
[2023-07-19 07:09] LABS: Basophils # (auto) 0.04 K/uL (0.00-0.20); Basophils % (auto) 0.4 %; Eosinophils # (auto) 0.17 K/uL (0.00-0.50); Eosinophils % (auto) 1.9 %; Hematocrit (blood only) 29.2 % (42.0-52.0); Hemoglobin 10.5 g/dl (14.0-18.0); Immature Granulocytes # (auto) 0.08 K/uL (0.01-0.20); Immature Granulocytes % (auto) 0.9 %; Lymphocytes # (auto) 0.64 K/uL (1.20-3.40); Lymphocytes % (auto) 7.2 %; Mean Corpuscular Hemoglobin 34.4 pg (25.0-34.0); Mean Corpuscular Volume 95.7 fL (80.0-100.0); Mean Platelet Volume 9.6 fL (9.4-12.4); Monocytes # (auto) 0.72 K/uL (0.11-0.59); Monocytes % (auto) 8.1 %; Neutrophils # (auto) 7.29 K/uL (1.40-6.50); Neutrophils % (auto) 81.5 %; Platelet Count 136 K/uL (130-400); RDW Coefficient of Variation 12.1 % (11.5-14.5); RDW Standard Deviation 41.7 fL (36.4-46.3); Red Blood Count 3.05 M/uL (4.70-6.10); White Blood Count 8.94 K/ul (4.8-10.8)
[2023-07-19 07:21] LABS: BUN Creatinine Ratio 15.8 (10-20); Calcium 6.5 mg/dl (8.6-10.3); Creatinine Clr Calc Pharmacy 45.9 ml/min; Est GFR (African American) 46.3 ml/min; Magnesium 1.2 mg/dl (1.7-2.4); Potassium 3.6 mmol/L (3.5-5.1)
[2023-07-19] MEDS ORDERED: ENOXAPARIN INJ 40 MG/0.4 ML SYR SQ SCH (09:00)
--- NOTE | 2023-07-19 09:20 | Gastrointestinal Consultation ---
Date of Consultation July 19, 2023 Assessment & Plan (1) Anemia: (2) Heme positive stool: (3) Alcohol abuse: Plan During his stay he did develop some anemia but no obvious signs of GI blood loss besides stools testing hemoccult positive. Patient currently feels well from a GI standpoint. He does not have any interest in an EGD or colonoscopy to evaluate the anemia/heme positive stools. He tells me he is only visiting the area and is from [place]. He tells me he has an upcoming appointment with his GI specialist there in the coming weeks and tells me he will address this there. I also advised ceasing ETOH use but he tells me he has no interest at this time. Continue with protonix 40mg IV bid. Supervising Physician Co-Signing Physician Notes Agree with GIANNI Gregory as above Interviewed and examined patient and agree with above Abd: Soft, NT, ND, +BS Continue current therapy and supportive care Will need EGD and colonoscopy with home GI upon discharge History of Present Illness Reason for Consultation: anemia, heme positive stool Requesting Physician: Deandre Vo MD Attending Physician: Syeda Whitten MD History of Present Illness Patient is a 63 year old male with past medical history of seizures, COPD, GERD, who presented to the ED on 07/16 after having a few seizures. He admits that in the two days prior to this he had issues with nausea, vomiting, abdominal pain, and diarrhea. This was suspected to possibly be related to a foodborne illness. He tells me that he suspects he had the seizures because he had poor oral intake due to being ill and was unable to keep his medications down. He tells me that during his inpatient stay that his nausea, vomiting, abdominal pain, and diarrhea have resolved. He tells me that his bowels are now back to baseline. no blood in the stools or melena that he noticed. During his inpatient stay, he did develop some anemia. initial hgb on admission was 16 and this did drop down to the 10 range, but has been stable at 10.5 today and yesterday. He does not notice any blood loss. stools did check hemoccult positive. He had a colonoscopy in [facility] about 5 years ago. He reports this was unremarkable. He tells me he has been drinking ETOH since age 7. He now drinks a few drinks a day. He used to drink heavier in the past. He does not seem to want to quantify. He tells me he has no desire in quitting. Allergies Allergy/AdvReac Type Severity Reaction Status Date / Time pollen extracts Allergy Intermediate ITCHY Verified 07/17/23 16:11 EYES, SNEEZING, CONGESTION Home Medications Medication Instructions Recorded Confirmed Type albuterol sulfate 90 mcg/actuation 1 puff inhalation DIRECTED PRN 07/17/23 07/17/23 History aerosol inhaler (Ventolin HFA) Shortness Of Breath Or Wheezing aspirin 81 mg tablet,delayed 81 mg PO DAILY 07/17/23 07/17/23 History release atorvastatin 40 mg tablet 40 mg PO DAILY 07/17/23 07/17/23 History calcium carbonate 600 mg-vitamin 1 tab PO DAILY 07/17/23 07/17/23 History D3 5 mcg (200 unit) tablet (Calcium 600 + D(3)) celecoxib 200 mg capsule 200 mg PO DAILY PRN Pain 07/17/23 07/17/23 History fluticasone 100 mcg-salmeterol 50 1 inh inhalation BID 07/17/23 07/17/23 History mcg/dose blistr powdr for inhalation levetiracetam 500 mg tablet 500 mg PO BID 07/17/23 07/17/23 History losartan 100 mg tablet 100 mg PO DAILY 07/17/23 07/17/23 History magnesium oxide 500 mg PO DAILY 07/17/23 07/17/23 History metoprolol tartrate 50 mg tablet 50 mg PO DAILY 07/17/23 07/17/23 History multivitamin 1 tab PO DAILY 07/17/23 07/17/23 History omeprazole 40 mg capsule,delayed 40 mg PO DAILY 07/17/23 07/17/23 History release venlafaxine 37.5 mg 37.5 mg PO DAILY 07/17/23 07/17/23 History capsule,extended release 24 hr Patient History Medical History (Updated 07/19/23 @ 09:24 by Geo Sales PA-C) Essential hypertension Surgical History (Updated 07/17/23 @ 17:20 by Maria Isabel Diallo PA-C) 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 Family History (Updated 07/17/23 @ 17:21 by Maria Isabel Diallo PA-C) Other Family history non-contributory Social History (Updated 07/17/23 @ 17:20 by Maria Isabel Diallo PA-C) Smoking Status: Never smoker Tobacco Type: Smokeless Tobacco (Dip or Chew) Second Hand Exposure: No; Do You Dip or Chew Tobacco: Yes; Tobacco Cessation Education Requested by Patient: No Hx Alcohol Use: Yes Alcohol type: beer Alcohol Intake Frequency: 4 or More x per/Week Alcohol Intake Frequency Comment: daily Hx Substance Use: No Preferred Language: Sammarinese Communication Ability: Effective Manager Community Required: No Beliefs That Will Affect Care: None Current Living Situation: Spouse current occupational status: employed Other Information That Helps Us Care for You: No Feels Safe at Home: Yes Safety Concerns: Feels Safe At This Time Assistive Devices: CPAP Review of Systems Review of Systems: All systems reviewed & are unremarkable except as noted in HPI & below Physical Exam Constitutional: WD/WN, vitals as above Respiratory: normal respiratory effort, lungs clear to auscultation Cardiovascular: RRR, no murmur, no edema Gastrointestinal (Abdomen): normal bowel sounds, soft, nontender, no hepatosplenomegaly Psychiatric: Orientation: alert and oriented x 3 Affect: euthymic affect Results & Data Vital Signs (Past 12 Hours) Vital Signs Temp Pulse Pulse Resp BP BP Pulse Ox 07/19/23 07:21 98.2 F 88 20 133/79 97 07/19/23 03:34 98.1 F 78 20 122/82 96 07/18/23 23:03 98.6 F 82 18 104/67 93 07/18/23 22:00 83 O2 Del Method 07/19/23 07:21 Room Air 07/19/23 03:34 Room Air 07/18/23 23:03 Room Air 07/18/23 22:00 Coding Level of Care Code 10608 IN/OBS CONSULT LVL 3,45M Diagnoses Anemia D64.9 Heme positive stool R19.5 Alcohol abuse F10.10
[2023-07-19] MEDS: MAGNESIUM SULFATE / D5W 1 GM/100 ML BAG IV SCH (10:06)
[2023-07-19] MEDS: SODIUM CHLORIDE 0.9% 1,000 ML IV SCH (11:28)
[2023-07-19] MEDS: LORazepam 3 MG in SYRINGE 1.5 ML IV PRN (11:57)
[2023-07-19] MEDS: GABAPENTIN 400 MG CAP PO SCH (16:52)
--- NOTE | 2023-07-19 18:57 | Hospitalist Progress Note ---
Date of Service July 19, 2023 Assessment & Plan (1) Seizure: (2) Gastroenteritis: (3) FELIX (acute kidney injury): (4) Hypomagnesemia: (5) Hypokalemia: (6) Leukocytosis: (7) Essential hypertension: (8) COPD (chronic obstructive pulmonary disease): (9) Dyslipidemia: (10) GERD (gastroesophageal reflux disease): (11) Hyperglycemia: Plan This is a 63 y/o male with PMHx significant for history of seizure disorder (on Keppra, last seizure 6 yrs ago), COPD, HTN, dyslipidemia, GERD, alcohol use disorder, and other history as outlined below who presented to the ED with seizures. Pt noted two days of vomiting and diarrhea with inability to maintain oral intake or keep medications down, including his Keppra. He also drinks EtOH daily and has not been able to keep this down, has a history of withdrawal symptoms previously. Etiology of seizure likely combination of missed medications and alcohol withdrawal. Multiple electrolyte abnormalities noted on labs. Seizures Evaluated by neurology; recommended to continue Keppra IV until oral can be established. Seizure precautions Replete electrolytes as needed Gastroenteritis Gastroenteritis with nausea and vomiting for several days Stool PCR negative CT abdomen pelvis did not show any significant findings On empiric ceftriaxone and Flagyl. Will continue antibiotics till blood cultures are negative. Advance diet as tolerated Possible GI Bleed Hgb decreased from 16 on admission to 10.5 FOBT + GI consulted, appreciate recs -outpt followup for EGD/colonoscopy FELIX (acute kidney injury) Likely prerenal related to dehydration in view of vomiting and profuse diarrhea with inability to maintain oral intake x 2 days His creatinine back in March 2023 was 0.99 Creatinine getting better with IV hydration from 3.8 Continue IV fluids with normal saline BMP daily Consider Nephrology consult Hypomagnesemia Suspect due to vomiting and diarrhea x 2 days Replete as needed Hypokalemia Suspect due to vomiting and diarrhea x 2 days Replete as needed Leukocytosis Likely stress related; resolved repleted Empiric antibiotics Chronic Alcohol Use Alcohol withdrawal AWSS protocol On gabapentin and Ativan PRN One to one sitter Consider precedex in ICU if worsening Essential hypertension Chronic, stable Continue beta matias but hold losartan due to dehydration and FELIX Monitor BP closely COPD (chronic obstructive pulmonary disease) Chronic, stable Home regimen ordered Dyslipidemia Chronic, stable Holding statin until able to tolerate po GERD (gastroesophageal reflux disease) Chronic Continue PPI Hyperglycemia Prediabetes Prior history of elevated sugar, on Metformin but more recent A1c levels have been around 5 not currently on any medication A1c of 6.1% Monitor Code Status: Full code DVT Prophylaxis:SCDs in setting of possible GI bleed Dispo: PT/OT ordered Admission and Anticipated Discharge Date Admission Date: July 17, 2023 Subjective Pt was seen while confused. Per nursing had been trying to get out of bed, confused, hallucinating. Review of Systems Review of Systems: All systems reviewed & are unremarkable except as noted in Subjective Physical Exam Physical Exam: General: Alert, confused Psych: Disoriented and confused HEENT: NC/AT CV: RRR Resp: Breath sounds clear bilaterally, no increased effort of breathing Abdomen: Soft, nontender, nondistended. Extremities: No edema in lower extremities bilaterally. Results & Data Results & Data Vital Signs (Past 12 Hours) Vital Signs Temp Pulse Pulse Resp BP BP Pulse Ox 07/19/23 07:21 36.8 C 88 20 133/79 97 07/19/23 03:34 36.7 C 78 20 122/82 96 07/18/23 23:03 37.0 C 82 18 104/67 93 07/18/23 22:00 83 O2 Del Method 07/19/23 07:21 Room Air 07/19/23 03:34 Room Air 07/18/23 23:03 Room Air 07/18/23 22:00 (6) Leukocytosis Leukocytosis type: unspecified Qualified Code(s): D72.829 - Elevated white blood cell count, unspecified (8) COPD (chronic obstructive pulmonary disease) COPD type: unspecified COPD Qualified Code(s): J44.9 - Chronic obstructive pulmonary disease, unspecified (10) GERD (gastroesophageal reflux disease) Esophagitis presence: esophagitis presence not specified Qualified Code(s): K21.9 - Gastro-esophageal reflux disease without esophagitis
[2023-07-19] MEDS: oxyCODONE HCL IR 5 MG TAB (IMMEDIATE RELEASE) PO PRN (20:31)
[2023-07-20 07:36] LABS: Basophils # (auto) 0.03 K/uL (0.00-0.20); Basophils % (auto) 0.3 %; Eosinophils # (auto) 0.08 K/uL (0.00-0.50); Eosinophils % (auto) 0.9 %; Hematocrit (blood only) 27.9 % (42.0-52.0); Immature Granulocytes # (auto) 0.09 K/uL (0.01-0.20); Lymphocytes # (auto) 0.59 K/uL (1.20-3.40); Lymphocytes % (auto) 6.5 %; Mean Corpuscular Hemoglobin 33.9 pg (25.0-34.0); Mean Corpuscular Hgb Conc 35.8 g/dL (32.0-36.0); Mean Corpuscular Volume 94.6 fL (80.0-100.0); Mean Platelet Volume 9.6 fL (9.4-12.4); Monocytes # (auto) 0.91 K/uL (0.11-0.59); Monocytes % (auto) 10.1 %; Neutrophils # (auto) 7.32 K/uL (1.40-6.50); Neutrophils % (auto) 81.2 %; Platelet Count 150 K/uL (130-400); RDW Coefficient of Variation 11.9 % (11.5-14.5); RDW Standard Deviation 40.6 fL (36.4-46.3); Red Blood Count 2.95 M/uL (4.70-6.10); White Blood Count 9.02 K/ul (4.8-10.8)
[2023-07-20 08:06] LABS: Albumin Globulin Ratio 1.3 (0.9-2); Albumin Level 3.6 gm/dl (3.4-5.0); BUN Creatinine Ratio 14.1 (10-20); Bilirubin,Total 0.7 mg/dl (0.2-1.0); Calcium 6.6 mg/dl (8.6-10.3); Creatinine Clr Calc Pharmacy 63.5 ml/min; Est GFR (African American) 68.6 ml/min; Est GFR (Non-African American) 59.2 ml/min; Globulin 2.7 gm/dl (2.5-4.0); Magnesium 1.5 mg/dl (1.7-2.4); Potassium 3.5 mmol/L (3.5-5.1); Total Protein 6.3 gm/dl (6.0-8.3)
[2023-07-20] MEDS: ACETAMINOPHEN 500 MG TAB PO PRN (08:11)
[2023-07-20] MEDS ORDERED: POTASSIUM PHOS 3 MMOL/1 ML INFUSION IV STA (09:07)
[2023-07-20] MEDS: POTASSIUM PHOSPHATE 21 MMOL in SODIUM CHLORIDE 0.9% 500 ML IV ONE (10:17)
[2023-07-20] MEDS: MAGNESIUM SULFATE / D5W 1 GM/100 ML BAG IV SCH (10:29)
[2023-07-20] MEDS: ALBUT/IPRATROP 3MG/0.5MG NEB 3 ML VIAL NEB STA (12:12)
[2023-07-20 12:16] LABS: Uric Acid 11.4 mg/dl (2.6-7.2)
--- NOTE | 2023-07-20 13:55 | Hospitalist Progress Note ---
Date of Service July 20, 2023 Assessment & Plan (1) Seizure: (2) Gastroenteritis: (3) FELIX (acute kidney injury): (4) Hypomagnesemia: (5) Hypokalemia: (6) Leukocytosis: (7) Essential hypertension: (8) COPD (chronic obstructive pulmonary disease): (9) Dyslipidemia: (10) GERD (gastroesophageal reflux disease): (11) Hyperglycemia: Plan This is a 63 y/o male with PMHx significant for history of seizure disorder (on Keppra, last seizure 6 yrs ago), COPD, HTN, dyslipidemia, GERD, alcohol use disorder, and other history as outlined below who presented to the ED with seizures. Pt noted two days of vomiting and diarrhea with inability to maintain oral intake or keep medications down, including his Keppra. He also drinks EtOH daily and has not been able to keep this down, has a history of withdrawal symptoms previously. Etiology of seizure likely combination of missed medications and alcohol withdrawal. Multiple electrolyte abnormalities noted on labs. Seizures Evaluated by neurology; recommended to continue Keppra IV until oral can be established. Seizure precautions Replete electrolytes as needed Gastroenteritis Gastroenteritis with nausea and vomiting for several days Stool PCR negative CT abdomen pelvis did not show any significant findings On empiric ceftriaxone and Flagyl. Continue abx Advance diet as tolerated Possible GI Bleed Hgb decreased from 16 on admission to 10.5 FOBT + GI consulted, appreciate recs -outpt followup for EGD/colonoscopy -pt declining inpt workup FELIX (acute kidney injury) Likely prerenal related to dehydration in view of vomiting and profuse diarrhea with inability to maintain oral intake x 2 days His creatinine back in March 2023 was 0.99 Creatinine getting better with IV hydration from 3.8 Continue IV fluids with normal saline BMP daily Consider Nephrology consult Cr improved to normal currently Hypomagnesemia Suspect due to vomiting and diarrhea x 2 days Replete as needed Hypokalemia Suspect due to vomiting and diarrhea x 2 days Replete as needed Leukocytosis Likely stress related; resolved repleted Empiric antibiotics Gout Pt with bilateral painful erythematous feet on 07/19 Uric acid elevated at 11 Started on prednisone 40mg daily, taper Continue to monitor Chronic Alcohol Use Alcohol withdrawal AWSS protocol On gabapentin and Ativan PRN One to one sitter Consider precedex in ICU if worsening Essential hypertension Chronic, stable Continue beta matias but hold losartan due to dehydration and FELIX Monitor BP closely COPD (chronic obstructive pulmonary disease) Chronic, stable Home regimen ordered Dyslipidemia Chronic, stable Holding statin until able to tolerate po GERD (gastroesophageal reflux disease) Chronic Continue PPI Hyperglycemia Prediabetes Prior history of elevated sugar, on Metformin but more recent A1c levels have been around 5 not currently on any medication A1c of 6.1% Monitor Code Status: Full code DVT Prophylaxis:SCDs in setting of possible GI bleed Dispo: PT/OT ordered Admission and Anticipated Discharge Date Admission Date: July 17, 2023 Subjective Pt was AAOx3 today. at bedside. Pt states feet hurt, noted erythema and pain. Notes has not had a gout episode for many years. Review of Systems Review of Systems: All systems reviewed & are unremarkable except as noted in Subjective Physical Exam Physical Exam: General: Alert, oriented x3 Psych: oriented x3 HEENT: NC/AT CV: RRR Resp: Breath sounds with wheezing bilaterally, no increased effort of breathing Abdomen: Soft, nontender, nondistended. Extremities: feet with erythema and pain bilaterally Results & Data Results & Data Vital Signs (Past 12 Hours) Vital Signs Temp Pulse Pulse Resp BP BP Pulse Ox 07/20/23 12:12 84 18 96 07/20/23 10:45 36.8 C 79 18 136/87 99 07/20/23 06:58 36.8 C 97 H 20 143/83 H 94 07/20/23 04:46 97 H 07/20/23 03:37 36.8 C 95 H 18 147/79 H 93 O2 Del Method 07/20/23 12:12 Room Air 07/20/23 10:45 Room Air 07/20/23 06:58 Room Air 07/20/23 04:46 07/20/23 03:37 Room Air (6) Leukocytosis Leukocytosis type: unspecified Qualified Code(s): D72.829 - Elevated white blood cell count, unspecified (8) COPD (chronic obstructive pulmonary disease) COPD type: unspecified COPD Qualified Code(s): J44.9 - Chronic obstructive pulmonary disease, unspecified (10) GERD (gastroesophageal reflux disease) Esophagitis presence: esophagitis presence not specified Qualified Code(s): K21.9 - Gastro-esophageal reflux disease without esophagitis
[2023-07-20] MEDS: predniSONE 20 MG TAB PO SCH (18:12)
[2023-07-20] MEDS: GABAPENTIN 100 MG CAP PO SCH (18:12)
[2023-07-20] MEDS: ALBUMIN 25% 25 GM/100 ML VIAL IV ONE (22:03)
[2023-07-20] MEDS: METOPROLOL TARTRATE 50 MG TAB PO SCH (22:49)
[2023-07-21] MEDS: METOPROLOL TARTRATE 50 MG TAB PO STA (04:38)
[2023-07-21 06:36] LABS: Basophils # (auto) 0.01 K/uL (0.00-0.20); Basophils % (auto) 0.1 %; Hematocrit (blood only) 28.1 % (42.0-52.0); Immature Granulocytes # (auto) 0.09 K/uL (0.01-0.20); Immature Granulocytes % (auto) 0.8 %; Lymphocytes % (auto) 3.7 %; Mean Corpuscular Hemoglobin 33.3 pg (25.0-34.0); Mean Corpuscular Hgb Conc 35.6 g/dL (32.0-36.0); Mean Corpuscular Volume 93.7 fL (80.0-100.0); Mean Platelet Volume 9.8 fL (9.4-12.4); Monocytes # (auto) 0.64 K/uL (0.11-0.59); Neutrophils # (auto) 9.56 K/uL (1.40-6.50); Neutrophils % (auto) 89.4 %; Platelet Count 196 K/uL (130-400); RDW Coefficient of Variation 11.9 % (11.5-14.5)
[2023-07-21 07:02] LABS: Albumin Globulin Ratio 1.3 (0.9-2); Albumin Level 3.9 gm/dl (3.4-5.0); BUN Creatinine Ratio 14.8 (10-20); Bilirubin,Total 0.5 mg/dl (0.2-1.0); Creatinine Clr Calc Pharmacy 75.8 ml/min; Est GFR (African American) 84.2 ml/min; Est GFR (Non-African American) 72.7 ml/min; Globulin 2.9 gm/dl (2.5-4.0); Magnesium 1.4 mg/dl (1.7-2.4); Phosphorus 2.3 mg/dl (2.5-4.9); Potassium 3.9 mmol/L (3.5-5.1); Total Protein 6.8 gm/dl (6.0-8.3)
[2023-07-21] MEDS: LACTATED RINGER'S 1,000 ML IV ONE (07:26)
[2023-07-21] MEDS ORDERED: POTASSIUM PHOS 3 MMOL/1 ML INFUSION IV STA (10:15)
[2023-07-21] MEDS: MAGNESIUM SULFATE / D5W 1 GM/100 ML BAG IV SCH (11:11)
[2023-07-21] MEDS: POTASSIUM PHOSPHATE 21 MMOL in SODIUM CHLORIDE 0.9% 500 ML IV ONE (12:25)
--- NOTE | 2023-07-21 12:32 | Hospitalist Progress Note ---
Date of Service July 21, 2023 Assessment & Plan (1) Seizure: (2) Gastroenteritis: (3) FELIX (acute kidney injury): (4) Hypomagnesemia: (5) Hypokalemia: (6) Leukocytosis: (7) Essential hypertension: (8) COPD (chronic obstructive pulmonary disease): (9) Dyslipidemia: (10) GERD (gastroesophageal reflux disease): (11) Hyperglycemia: Plan This is a 63 y/o male with PMHx significant for history of seizure disorder (on Keppra, last seizure 6 yrs ago), COPD, HTN, dyslipidemia, GERD, alcohol use disorder, and other history as outlined below who presented to the ED with seizures. Pt noted two days of vomiting and diarrhea with inability to maintain oral intake or keep medications down, including his Keppra. He also drinks EtOH daily and has not been able to keep this down, has a history of withdrawal symptoms previously. Etiology of seizure likely combination of missed medications and alcohol withdrawal. Multiple electrolyte abnormalities noted on labs. Seizures Evaluated by neurology; recommended to continue Keppra IV until oral can be established. Seizure precautions Replete electrolytes as needed Currently on po Keppra Gastroenteritis Gastroenteritis with nausea and vomiting for several days Stool PCR negative CT abdomen pelvis did not show any significant findings On empiric ceftriaxone and Flagyl. Continue abx x 5 days Advance diet as tolerated Possible GI Bleed Hgb decreased from 16 on admission to 10.5 FOBT + GI consulted, appreciate recs -outpt followup for EGD/colonoscopy -pt declining inpt workup GI followup outpt per pt request FELIX (acute kidney injury) Likely prerenal related to dehydration in view of vomiting and profuse diarrhea with inability to maintain oral intake x 2 days His creatinine back in March 2023 was 0.99 Creatinine getting better with IV hydration from 3.8 Continue IV fluids with normal saline BMP daily Consider Nephrology consult Cr improved to normal currently Hypomagnesemia Suspect due to vomiting and diarrhea x 2 days Replete as needed Hypokalemia Suspect due to vomiting and diarrhea x 2 days Replete as needed Leukocytosis Likely stress related; resolved repleted Empiric antibiotics Gout Lower extremity swelling Pt with bilateral painful erythematous feet on 07/19 Bilateral foot xrays ordered Uric acid elevated at 11 Started on prednisone 40mg daily, taper Continue to monitor Chronic Alcohol Use Alcohol withdrawal AWSS protocol On gabapentin and Ativan PRN One to one sitter Consider precedex in ICU if worsening Essential hypertension Chronic, stable Continue beta matias but hold losartan due to dehydration and FELIX Monitor BP closely COPD (chronic obstructive pulmonary disease) Chronic, stable Home regimen ordered Dyslipidemia Chronic, stable Holding statin until able to tolerate po GERD (gastroesophageal reflux disease) Chronic Continue PPI Hyperglycemia Prediabetes Prior history of elevated sugar, on Metformin but more recent A1c levels have been around 5 not currently on any medication A1c of 6.1% Monitor Code Status: Full code DVT Prophylaxis:SCDs in setting of possible GI bleed Dispo: PT/OT ordered Admission and Anticipated Discharge Date Admission Date: July 17, 2023 Subjective Pt was seen with and daughter at bedside States the pain in the feet had improved. However per nursing unable to stand on his feet. Tolerating food well, still AAOx3. Review of Systems Review of Systems: All systems reviewed & are unremarkable except as noted in Subjective Physical Exam Physical Exam: General: Alert, oriented x3 Psych: oriented x3 HEENT: NC/AT CV: RRR Resp: Breath sounds with wheezing bilaterally, no increased effort of breathing Abdomen: Soft, nontender, nondistended. Extremities: feet with erythema and pain bilaterally Results & Data Results & Data Vital Signs (Past 12 Hours) Vital Signs Temp Pulse Pulse Resp BP Pulse Ox O2 Del Method 07/21/23 12:07 37.3 C 81 18 156/83 H 96 Room Air 07/21/23 08:00 36.5 C 72 20 152/87 H 94 Room Air 07/21/23 07:30 73 07/21/23 04:41 77 144/83 H 07/21/23 02:49 36.5 C 92 H 20 160/97 H 95 Room Air 07/21/23 02:47 89 (6) Leukocytosis Leukocytosis type: unspecified Qualified Code(s): D72.829 - Elevated white blood cell count, unspecified (8) COPD (chronic obstructive pulmonary disease) COPD type: unspecified COPD Qualified Code(s): J44.9 - Chronic obstructive pulmonary disease, unspecified (10) GERD (gastroesophageal reflux disease) Esophagitis presence: esophagitis presence not specified Qualified Code(s): K21.9 - Gastro-esophageal reflux disease without esophagitis
--- NOTE | 2023-07-21 13:59 | XRay Report ---
RIGHT FOOT 3 VIEWS CLINICAL HISTORY: Right foot pain and swelling. Erythema. FINDINGS: 3 views of the right foot are obtained. No prior studies are available for comparison at th e time of dictation. The skeletal structures are well mineralized. No fracture is seen. Mild osteoart hritic change is seen at the first metatarsophalangeal joint. No erosive disease is seen. There is a punctate plantar heel spur. Mild soft tissue edema is suggested in the foot. IMPRESSION: No acute bony abnormality is identified. Electronically signed by: Mateusz Gentile M.D. 07/21/2023 1:58 PM
[2023-07-21] MEDS ORDERED: GLUCOSE 10 TAB/TUBE PO PRN (16:51)
[2023-07-21] MEDS ORDERED: GLUCOSE 40% GEL 15 GM TUBE PO PRN (16:51)
[2023-07-21] MEDS ORDERED: GLUCAGON FOR INJ 1 MG VIAL SQ PRN (16:51)
[2023-07-21] MEDS ORDERED: DEXTROSE 50% 50 ML SYRINGE IV PRN (16:51)
[2023-07-21] MEDS ORDERED: CARBOHYDRATES FOR HYPOGLYCEMIA PO PRN (16:51)
--- NOTE | 2023-07-21 16:51 | XRay Report ---
XR foot LT min 3V routine CLINICAL HISTORY: pain and swelling, erythema TECHNIQUE: 3 views of the left foot were obtained. Comparison: None available at the time of this dictation. FINDINGS: No fractures are present. The joint spaces are well preserved. No soft tissue abnormality is seen. IMPRESSION: No evidence of acute bony injury. ACT 112: Negative or not required by law. Electronically signed by: Dell Capone M.D. 07/21/2023 4:50 PM
[2023-07-21] MEDS ORDERED: PHARMACY GLYCEMIC MGMT CONSULT PRN (16:52)
[2023-07-21] MEDS: INSULIN ASPART PER UNIT CHARGE SC SCH (21:23)
[2023-07-21] MEDS: METOPROLOL TARTRATE 50 MG TAB PO SCH (21:25)
[2023-07-21] MEDS: levETIRAcetam 500 MG TAB PO SCH (21:25)
[2023-07-21] MEDS ORDERED: LORazepam 2 MG/1 ML VIAL IM PRN (22:59)
[2023-07-22 06:57] LABS: Albumin Globulin Ratio 1.3 (0.9-2); Albumin Level 3.6 gm/dl (3.4-5.0); BUN Creatinine Ratio 22.6 (10-20); Basophils # (auto) 0.02 K/uL (0.00-0.20); Basophils % (auto) 0.2 %; Bilirubin,Total 0.3 mg/dl (0.2-1.0); Calcium 7.4 mg/dl (8.6-10.3); Creatinine Clr Calc Pharmacy 87.7 ml/min; Eosinophils # (auto) 0.05 K/uL (0.00-0.50); Eosinophils % (auto) 0.5 %; Est GFR (African American) 100.9 ml/min; Est GFR (Non-African American) 87.1 ml/min; Globulin 2.7 gm/dl (2.5-4.0); Hemoglobin 9.5 g/dl (14.0-18.0); Immature Granulocytes # (auto) 0.21 K/uL (0.01-0.20); Immature Granulocytes % (auto) 2.1 %; Lymphocytes # (auto) 1.03 K/uL (1.20-3.40); Lymphocytes % (auto) 10.4 %; Magnesium 1.4 mg/dl (1.7-2.4); Mean Corpuscular Hemoglobin 33.7 pg (25.0-34.0); Mean Corpuscular Hgb Conc 35.2 g/dL (32.0-36.0); Mean Corpuscular Volume 95.7 fL (80.0-100.0); Mean Platelet Volume 9.9 fL (9.4-12.4); Monocytes # (auto) 0.84 K/uL (0.11-0.59); Monocytes % (auto) 8.5 %; Neutrophils # (auto) 7.73 K/uL (1.40-6.50); Neutrophils % (auto) 78.3 %; Phosphorus 2.1 mg/dl (2.5-4.9); Platelet Count 200 K/uL (130-400); Potassium 3.5 mmol/L (3.5-5.1); RDW Coefficient of Variation 12.1 % (11.5-14.5); RDW Standard Deviation 41.7 fL (36.4-46.3); Red Blood Count 2.82 M/uL (4.70-6.10); Total Protein 6.3 gm/dl (6.0-8.3); White Blood Count 9.88 K/ul (4.8-10.8)
[2023-07-22] MEDS: CALCIUM CITRATE 950 MG TAB PO SCH (11:55)
[2023-07-22] MEDS: POT PHOSPHATE MONOBASIC W/ SOD TAB PO SCH (11:55)
[2023-07-22] MEDS: MAGNESIUM OXIDE 400 MG TAB PO SCH (11:55)
--- NOTE | 2023-07-22 15:01 | Discharge Summary ---
Discharge Summary Date of Service July 22, 2023 Notes For Next Care Provider Please repeat Magnesium, Phosphorus and Calcium levels in 3 days and ensure levels are adequately supplemented Please followup on gout in feet, consider starting preventative medication Please ensure close monitoring of H/H in the setting of possible GI bleed/+ FOBT that pt declined further inpatient GI evaluation for. Medication Changes From Visit Colchicine 0.6mg daily for 2 more days for acute gout treatment Phosphorus and calcium supplements for 2 more days Renewed home magnesium supplement Home aspirin and celebrex discontinued in setting of +FOBT/GI Bleed Admission HPI Per Admitting Provider This is a 63 y/o male with history of seizure d/o (on Keppra, last seizure 6 yrs ago), COPD, HTN, dyslipidemia, GERD, alcohol use disorder, and other history as outlined below who presented to the ED today with seizures. Pt reports being diagnosed with seizures six years ago when he had a tonic clonic seizure and was started on Keppra. He was unsure of the cause, but notes that he has done well on Keppra since that time without seizure. Today, he developed three "mini" seizures which he and his describe as brief episodes of rapid eye movements, yelling out, paranoia, and mild tremors. These all lasted less than two minutes and occurred in relatively rapid succession. About an hour later, he had a full tonic clonic seizure with associated fecal incontinence. This lasted less than five minutes but was followed by a brief post-ictal period (?<10 minutes). He did bite his tongue during this episode. Pt reports that he has been vomiting for the last two days and has been unable to keep doing any of his medications, including his Keppra. He has had associated subjective fevers, chills, and profuse diarrhea. Denies hematemesis or hematochezia. He denies sick contacts. He does note eating at [employer] just before these symptoms started and that his Whopper didn't taste right. He also reports drinking alcohol daily although is somewhat reticent to quantify the exact amount - does note that he previously drank "heavily" and has since cut back. He tried drinking a beer this morning to see if this would help his symptoms but did not keep it down. He reports a history of alcohol withdrawal symptoms previously, specifically anxiety and tremors. He denies being diabetic at present although reports that he was on Metformin for blood sugar issues when he was drinking heavily. More recent A1c levels have been around 5 so he has not been taking anything for his blood sugar. He denies prior history of kidney disease. Notes that his urine output and frequency have been reduced over the last 24-48 hours but he is still urinating. Denies dark urine or hematuria. Admission Exam Per Admitting Provider General: awake, alert, NAD Eyes: PERRLA, EOMI, no scleral icterus Mouth: +small shallow wound on right lateral aspect of tongue, no active bleeding; tongue midline; uvula rises symmetrically with phonation; dry oral mucosa Neck: trachea midline Heart: tachycardic, irregular, no murmur Lungs: CTA bilaterally without W/R/R Abdomen: soft but mildly distended with diffuse tenderness to palpation, no guarding or rigidity, +hyperactive BS Extremities: no pedal edema, strength equal bilaterally but decreased symmetrically in LE (subjectively felt weak) Skin: warm, dry, no jaundice or rash Neurologic: Ox3, no dysarthria, no confusion, moving all extremities but generalized weakness as noted. No tremor at present Principal Dx & Hospital Course #1 = Principal Diagnosis (1) Seizure: (2) Gastroenteritis: (3) FELIX (acute kidney injury): (4) Hypomagnesemia: (5) Hypokalemia: (6) Leukocytosis: (7) Essential hypertension: (8) COPD (chronic obstructive pulmonary disease): (9) Dyslipidemia: (10) GERD (gastroesophageal reflux disease): (11) Hyperglycemia: Plan This is a 63 y/o male with PMHx significant for history of seizure disorder (on Keppra, last seizure 6 yrs ago), COPD, HTN, dyslipidemia, GERD, alcohol use disorder, and other history as outlined below who presented to the ED with seizures. Pt noted two days of vomiting and diarrhea with inability to maintain oral intake or keep medications down, including his Keppra. He also drinks EtOH daily and has not been able to keep this down, has a history of withdrawal symptoms previously. Etiology of seizure likely combination of missed medications and alcohol withdrawal. Multiple electrolyte abnormalities noted on labs. Seizures Evaluated by neurology; recommended to continue Keppra IV until oral can be established. Seizure precautions Repleted electrolytes as needed Was transitioned to po Keppra and tolerating at time of discharge. Gastroenteritis Gastroenteritis with nausea and vomiting for several days Stool PCR negative CT abdomen pelvis did not show any significant findings On empiric ceftriaxone and Flagyl. Continued abx x 5 days of treatment Advanced diet as tolerated Resolved on discharge Possible GI Bleed Hgb decreased from 16 on admission to 9.5 FOBT + GI consulted, appreciate recs PT DECLINING INPATIENT GI PROCEDURES OR FURTHER EVALUATION -outpt followup for EGD/colonoscopy -pt declining inpt workup GI followup outpt per pt request in home area Continue IV Protonix BID Discharged with po pantoprazole 40mg BID, hold home omeprazole while on this. Pt and aware close GI followup needed per pt's request with home GI specialist. Please ensure close monitoring of H/H in the setting of possible GI bleed/+ FOBT that pt declined further inpatient GI evaluation for. FELIX (acute kidney injury) Likely prerenal related to dehydration in view of vomiting and profuse diarrhea with inability to maintain oral intake x 2 days His creatinine back in March 2023 was 0.99 Creatinine getting better with IV hydration from 3.8 Continue IV fluids with normal saline BMP daily Consider Nephrology consult Cr improved to normal on discharge Hypomagnesemia Suspect due to vomiting and diarrhea x 2 days Repleted as needed Discharged with renewal of home magnesium supplementation Close PCP monitoring of level in 3 days and further supplemntation as needed Hypokalemia Suspect due to vomiting and diarrhea x 2 days Repleted as needed Was normal on day of discharge Hypocalcemia Ionized calcium level low Supplemented with citracal PCP followup for continued monitoring and supplementation as needed Leukocytosis Likely stress related; resolved repleted Empiric antibiotics as above Wnl on discharge Gout Lower extremity swelling Pt with bilateral painful erythematous feet on 07/19 Bilateral foot xrays ordered- no acute abnormalities Uric acid elevated at 11 Started on prednisone 40mg daily, transitioned to colchine on discharge for 2 mo re days of treatment PCP followup-consider preventative medication Chronic Alcohol Use Alcohol withdrawal AWSS protocol On gabapentin and Ativan PRN One to one sitter Resolved on discharge Essential hypertension Chronic, stable Continue beta matias but hold losartan due to dehydration and FELIX Home meds resumed on discharge COPD (chronic obstructive pulmonary disease) Chronic, stable Home regimen ordered Dyslipidemia Chronic, stable Resume home meds on discharge GERD (gastroesophageal reflux disease) Chronic Continue PPI as above, switched to pantopraxole 40mg BID Hyperglycemia Prediabetes Prior history of elevated sugar, on Metformin but more recent A1c levels have been around 5 not currently on any medication A1c of 6.1% Monitor Discharge Exam General: Alert, oriented x3 Psych: oriented x3 HEENT: NC/AT CV: RRR Resp: Breath sounds with wheezing bilaterally, no increased effort of breathing Abdomen: Soft, nontender, nondistended. Extremities: feet with improved erythema and pain bilaterally Updated Medication List Medication Instructions Recorded Confirmed Type albuterol sulfate 90 mcg/actuation 1 puff inhalation DIRECTED PRN 07/17/23 07/17/23 History aerosol inhaler (Ventolin HFA) Shortness Of Breath Or Wheezing atorvastatin 40 mg tablet 40 mg PO DAILY 07/17/23 07/17/23 History calcium carbonate 600 mg-vitamin 1 tab PO DAILY 07/17/23 07/17/23 History D3 5 mcg (200 unit) tablet (Calcium 600 + D(3)) fluticasone 100 mcg-salmeterol 50 1 inh inhalation BID 07/17/23 07/17/23 History mcg/dose blistr powdr for inhalation levetiracetam 500 mg tablet 500 mg PO BID 07/17/23 07/17/23 History losartan 100 mg tablet 100 mg PO DAILY 07/17/23 07/17/23 History metoprolol tartrate 50 mg tablet 50 mg PO DAILY 07/17/23 07/17/23 History multivitamin 1 tab PO DAILY 07/17/23 07/17/23 History venlafaxine 37.5 mg 37.5 mg PO DAILY 07/17/23 07/17/23 History capsule,extended release 24 hr Calcium Citrate [Citracal] 950 mg PO PC #9 tabs 07/22/23 Rx colchicine 0.6 mg tablet 0.6 mg PO DAILY #2 tabs 07/22/23 Rx magnesium oxide 500 mg PO DAILY #30 tabs 07/22/23 Rx pantoprazole 40 mg tablet,delayed 40 mg PO BID #60 tabs 07/22/23 Rx release sodium di- and 2 tab PO QID #12 tabs 07/22/23 Rx monophosphate-potassium phos monobasic 250 mg tablet (Phospha Neutral) Hospital Stay Data Consultations 07/17/23 15:57 ED Decision to Admit Stat 07/17/23 19:40 Consult Neurology Routine 07/19/23 08:00 Consult Gastroenterology Routine Diagnostic Imagining Performed 07/17/23 14:20 CT head/brain wo con Stat 07/17/23 17:38 CT Abd and Pelvis [CT abd pelvis wo con] Stat Head CT 07/17/23 14:20 CT OF THE HEAD WITHOUT CONTRAST CLINICAL HISTORY: Seizure. COMPARISON STUDY: No previous studies for comparison. CT DOSE: 547.75 mGy.cm TECHNIQUE: Helical axial images of the head were obtained without IV contrast. Automated exposure control was utilized for the study. A dose lowering technique was utilized adhering to the principles of ALARA. FINDINGS: No acute intracranial hemorrhage, midline shift or mass effect is present. The ventricular system is unremarkable. The basal cisterns are patent. No extra-axial collections are present. There are no findings to suggest acute dural sinus thrombosis or acute territorial infarct. There is no calvarial fracture. 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 IMPRESSION: No acute intracranial findings. ACT 112: Negative or not required by law. Electronically signed by: Juni Barron M.D. 07/17/2023 3:38 PM Abdomen/Pelvis CT 07/17/23 17:[address] WITHOUT CONTRAST CT DOSE: 1390.78 mGy.cm HISTORY: Acute generalized abdominal pain leukocytosis, abdominal pain TECHNIQUE: Multiaxial CT images of the abdomen and pelvis were performed without contrast. A dose lowering technique was utilized adhering to the principles of ALARA. COMPARISON STUDY: None. FINDINGS: Coronary artery calcifications. Mild cardiomegaly. Mild subsegmental bibasilar atelectasis versus scarring. No free air. Unremarkable unenhanced spleen, pancreas and adrenal glands. Possible gallbladder sludge. Hepatic steatosis with mild hepatomegaly. Mild nonspecific bilateral perinephric stranding. No urolithiasis or hydronephrosis. Prostatomegaly with mild bladder wall thickening. There is mild dilation of the mid to distal left ureter. Small fat filled left inguinal hernia. No abdominal aortic aneurysm. No lymphadenopathy. Nonspecific distal esophageal wall thickening. Tiny hiatal hernia. No bowel obstruction or bowel wall thickening. Colonic diverticulosis. Normal appendix. Unremarkable soft tissues. Healed chronic left-sided rib fractures. No acute fracture. IMPRESSION: 1. No bowel obstruction or bowel wall thickening. 2. Nonspecific distal esophageal wall thickening may represent esophagitis. 3. Colonic diverticulosis. 4. Hepatic steatosis. ACT 112: Negative or not required by law. The above report was generated using voice recognition software. It may contain grammatical, syntax or spelling errors. Electronically signed by: Tushar Flor M.D. 07/17/2023 6:35 PM Foot X-Ray 07/21/23 13:10 RIGHT FOOT 3 VIEWS CLINICAL HISTORY: Right foot pain and swelling. Erythema. FINDINGS: 3 views of the right foot are obtained. No prior studies are available for comparison at the time of dictation. The skeletal structures are well mineralized. No fracture is seen. Mild osteoarthritic change is seen at the first metatarsophalangeal joint. No erosive disease is seen. There is a punctate plantar heel spur. Mild soft tissue edema is suggested in the foot. IMPRESSION: No acute bony abnormality is identified. Electronically signed by: Mateusz Gentile M.D. 07/21/2023 1:58 PM Foot X-Ray 07/21/23 13:10 XR foot LT min 3V routine CLINICAL HISTORY: pain and swelling, erythema TECHNIQUE: 3 views of the left foot were obtained. Comparison: None available at the time of this dictation. FINDINGS: No fractures are present. The joint spaces are well preserved. No soft tissue abnormality is seen. IMPRESSION: No evidence of acute bony injury. ACT 112: Negative or not required by law. Electronically signed by: Dell Capone M.D. 07/21/2023 4:50 PM Pending Results Patient Have Any Pending Studies at Discharge: No Discharge Instructions Given to Patient (Per Discharging Provider) Mr. Gonzalez, We are discharging you home. We recommend the following: -Please keep close followup with your associate web developer regarding the blood in your stool. You declined evaluation here. It can affect your hemoglobin which needs to be monitored to ensure you do not need a blood transfusion. We stopped your home aspirin and celebrex as they can make your bleeding worse. -please try to stay away from alcohol as you went through withdrawal here. -Please continue with two more days of the medication colchicine for your gout treatment. Please follow up with your primary care provider for daily medication to prevent this from happening after your acute flare is over. -Your electrolytes were low. We are discharging you home with supplements to help but your levels will need to be monitored in 2 days by your primary care doctor to ensure they are where they need to be. PLEASE FOLLOW UP with your primary care provider about this and the other things listed above. Again, please keep close follow up with your primary care provider and associate web developer after discharge. Please do not hesitate to come back to the emergency room if your symptoms worsen or return. It was a pleasure taking care of you while you were here. Total Time Total Time Spent Total Time Spent (In Minutes): 75
== END 2023-07-22 15:19 | disposition home or self-care (01) | DRG 101 ==
LOC: ED 13:48 → 4W 16:21 → SUATTDRO 16:21 → 4W 18:48